=== PATIENT | female | born 1940 | race Caucasian/White ===

== ENCOUNTER 2017-05-29 09:42 | Inpatient (IN) | payer OTHER ==
[~2017-05-29] VITALS: Ht 144.8 cm; Wt 67.1 kg
--- NOTE | ~2017-05-29 | P ---
[facility] [place] [address] PROCEDURE REPORT Name: PAULINA CHIRINOS Room #: 418-P [facility] M.R.#: [id number] Admission: 05/29/17 Attend Phys: Norman Ya MD Discharge: 06/01/17 Date of : 44 Report #: [id number] THIS REPORT FOR: //name// CC: Norman Torres MD DATE OF SERVICE: 05/30/2017 INPATIENT UPPER ENDOSCOPY REPORT BRIEF HISTORY: The patient is a 76-year-old woman with history of persistent nausea and vomiting and also painful swallowing. PREOPERATIVE DIAGNOSES: Nausea, vomiting, and odynophagia. POSTOPERATIVE DIAGNOSES: 1. Mild erythematous antral gastritis. 2. Small hiatus hernia. MEDICATIONS: Deep sedation with propofol per anesthesia. SPECIMEN: Biopsies of gastritis, rule out Helicobacter pylori. ESTIMATED BLOOD LOSS: 3 mL. PROCEDURE: EGD with biopsy and Fajardo dilation. FINDINGS: Prior to propofol sedation, the procedure of upper endoscopy was discussed with the patient as well as potential risks and its complications. She indicates she understands and desires to proceed. With the patient in the left lateral decubitus position, Fuji video endoscope was inserted in the cervical esophagus under direct vision without difficulty. Examination of this organ though its entire length revealed normal esophageal mucosa down the squamocolumnar junction. Inspection of the squamocolumnar junction revealed it to be essentially intact. I did not see any ulcers or erosions. There is no evidence of Palomares esophagus. No strictures or masses were seen. In addition, no ulcers were seen anywhere in the esophagus. There is no evidence of any pill ulcerations. However, right above the squamocolumnar junction, there was some patchy erythema in the esophagus. This may be a result of her vomiting. Significant erosive changes were not seen. Scope was advanced into about a 3 cm sliding type hiatus hernia. The mucosa and hernia was unremarkable. There is no obvious obstruction. Scope was advanced in the stomach, was examined on end view as well as retroflexed views. There was erythema in the antrum of stomach, but no ulcers were seen. There is no [facility] [address] [place] [address] PROCEDURE REPORT Name: PAULINA CHIRINOS Room #: 418-P [facility] IN M.R.#: [id number] Admission: 05/29/17 Attend Phys: Norman Ya MD Discharge: 06/01/17 Date of : 44 Report #: [id number] evidence of outlet obstruction. There are no retained solids or liquids in the stomach. Upon retroflexion, no mass lesions were seen. The hiatus hernia was again seen without other abnormalities. The pylorus was normal. Duodenal bulb was normal. Postbulbar duodenal sweep was normal down to the third portion. The duodenal papilla was well seen and normal. At that point, the scope was slowly withdrawn and careful circumferential views confirmed the above findings. The patient tolerated the procedure well. Subsequently, she was dilated with passage of a 50-[place] Fajardo dilator. There was no resistance. DISPOSITION: The patient with nausea, vomiting and odynophagia. I did not find any significant lesions. At this point in time, we would treat her symptomatically with PPI. She was empirically dilated as noted. If she has problems in the future with dysphagia, dilation can be repeated on an as needed basis. If symptoms persist, consider gastric emptying study. However, it is noted she does use some narcotics, which may be a factor. She will have to come off the narcotics to complete a valid gastric emptying study. <ELECTRONICALLY SIGNED> By: Zackary Crane MD 06/02/17 1630 [id number] [id number] Zackary Crane MD /nt
[2017-05-29 09:54] VITALS: BP 140/47
[2017-05-29 10:24] LABS: HEMATOCRIT 45.1 % (37.0-47.0); HEMOGLOBIN 15.6 gm/dL (12.0-15.0); MCH 32.6 pg (26.0-34.0); MCHC 34.7 g/dL (28.0-37.0); PLATELET COUNT 231 thou/uL (150-400); RBC 4.79 mil/uL (4.20-5.00); RDW 12.9 % (10.5-14.5); WBC 6.9 thou/uL (4.0-11.0)
[2017-05-29] MEDS ORDERED: XANAX 0.25 MG0.25 MG PO (10:24)
[2017-05-29] MEDS ORDERED: CELEXA20 MG PO (10:24)
[2017-05-29] MEDS ORDERED: FOLIC ACID1 MG PO (10:25)
[2017-05-29] MEDS ORDERED: CYMBALTA60 MG PO (10:25)
[2017-05-29] MEDS ORDERED: FLEXERIL PO (10:25)
[2017-05-29] MEDS ORDERED: NORCO 5-325 TA1 EACH PO (10:26)
[2017-05-29] MEDS ORDERED: GABAPENTIN 100100 MG PO (10:26)
[2017-05-29] MEDS ORDERED: METHOTREXATE 22.5 MG PO (10:27)
[2017-05-29] MEDS ORDERED: PREDNISONE 5 MG5 M1 PO (10:28)
[2017-05-29] MEDS ORDERED: FOSAMAX 70 MG T70 MG PO (10:28)
[2017-05-29] MEDS ORDERED: TOPROL XL25 MG PO (10:28)
[2017-05-29 10:29] LABS: CALCIUM 8.9 mg/dL (8.5-10.1); CREATININE 0.8 mg/dL (0.6-1.0); POTASSIUM 3.7 mmol/L (3.5-5.1)
[2017-05-29] MEDS ORDERED: BENEFIBER152 GM PO (10:29)
[2017-05-29] MEDS ORDERED: CALCIUM 600 +1 EAC1 PO (10:29)
[2017-05-29] MEDS ORDERED: NEXIUM40 MG PO (10:30)
[2017-05-29] MEDS ORDERED: VITAMIN B-12500 MCG PO (10:30)
[2017-05-29] MEDS ORDERED: FISH OIL 1,001000 M2 PO (10:30)
[2017-05-29] MEDS ORDERED: ACTEMRA80 MG/4 ML IV (10:31)
[2017-05-29 10:35] LABS: ALBUMIN 3.9 g/dL (3.4-5.0); TOTAL BILIRUBIN 1.6 mg/dL (<0.1-1.0); TOTAL PROTEIN 6.7 g/dL (6.4-8.2)
[2017-05-29 10:50] LABS: PLATELET ESTIMATE NORMAL
[2017-05-29 13:36] VITALS: BP 150/62
[2017-05-29 15:25] VITALS: BP 121/52
[2017-05-29 19:05] VITALS: BP 147/71
[2017-05-29] MEDS ORDERED: LOPRESSOR25 PO (21:06)
[2017-05-30 00:26] VITALS: BP 148/55
[2017-05-30 05:18] VITALS: BP 156/64
[2017-05-30 06:32] LABS: HEMATOCRIT 38.6 % (37.0-47.0); MCH 32.6 pg (26.0-34.0); MCHC 34.8 g/dL (28.0-37.0); MCV 93.6 fL (80.0-100.0); RBC 4.12 mil/uL (4.20-5.00); RDW 13.1 % (10.5-14.5); WBC 6.8 thou/uL (4.0-11.0)
[2017-05-30 06:35] LABS: HEMOGLOBIN 13.4 gm/dL (12.0-15.0)
[2017-05-30 06:40] LABS: CALCIUM 8.1 mg/dL (8.5-10.1); CREATININE 0.6 mg/dL (0.6-1.0); MAGNESIUM 1.9 mg/dL (1.8-2.4); POTASSIUM 3.5 mmol/L (3.5-5.1)
[2017-05-30 06:47] LABS: DIRECT BILIRUBIN 0.4 mg/dL (<0.1-0.3); TOTAL BILIRUBIN 1.4 mg/dL (<0.1-1.0)
[2017-05-30 07:00] VITALS: BP 156/63
[2017-05-30 14:05] VITALS: BP 137/59
[2017-05-30 15:10] VITALS: BP 154/63
[2017-05-30 19:14] VITALS: BP 148/51
[2017-05-30 23:31] LABS: URINE BILIRUBIN NEGATIVE (Negative); URINE BLOOD NEGATIVE (Negative); URINE CLARITY CLEAR; URINE COLOR STRAW; URINE GLUCOSE-RANDOM* NEGATIVE (Negative); URINE KETONES 1+ (Negative); URINE LEUKOCYTES-REFLEX NEGATIVE (Negative); URINE NITRITE-REFLEX NEGATIVE (Negative); URINE PROTEIN (DIPSTICK) NEGATIVE (Negative); URINE SPECIFIC GRAVITY <= 1.005 (1.005-1.035); URINE UROBILINOGEN 0.2 E.U./dl (0.2-1.0)
[2017-05-31 03:57] VITALS: BP 114/41
[2017-05-31 05:29] LABS: HEMATOCRIT 37.5 % (37.0-47.0); HEMOGLOBIN 12.9 gm/dL (12.0-15.0); MCH 32.2 pg (26.0-34.0); MCHC 34.4 g/dL (28.0-37.0); MCV 93.8 fL (80.0-100.0); RDW 12.9 % (10.5-14.5); WBC 15.1 thou/uL (4.0-11.0)
[2017-05-31 05:52] LABS: CALCIUM 8.3 mg/dL (8.5-10.1); CREATININE 0.5 mg/dL (0.6-1.0); MAGNESIUM 1.9 mg/dL (1.8-2.4); POTASSIUM 3.2 mmol/L (3.5-5.1)
[2017-05-31 07:15] VITALS: BP 134/36
[2017-05-31 15:20] VITALS: BP 143/45
[2017-05-31 19:31] VITALS: BP 130/82
[2017-05-31 20:00] VITALS: BP 150/67
[2017-06-01 04:30] VITALS: BP 147/52
[2017-06-01 04:53] LABS: MCH 32.5 pg (26.0-34.0); MCHC 34.3 g/dL (28.0-37.0); MCV 94.9 fL (80.0-100.0); RDW 13.1 % (10.5-14.5); WBC 7.5 thou/uL (4.0-11.0)
[2017-06-01 05:10] LABS: CALCIUM 8.6 mg/dL (8.5-10.1); CREATININE 0.5 mg/dL (0.6-1.0); MAGNESIUM 1.9 mg/dL (1.8-2.4); POTASSIUM 3.6 mmol/L (3.5-5.1)
[2017-06-01 07:00] VITALS: BP 162/63
[2017-06-01 15:10] VITALS: BP 162/63
== END 2017-06-01 15:41 | disposition home or self-care (01) | DRG 392 ==
LOC: ER 09:42 → EROBS 11:48 → 4E 11:48 → ENTRNSPT 06-01 15:32 → EDTRNSPTSTS 06-01 15:33 → 4E 06-01 15:41
PROVIDERS: Emergency Medicine; Internal Medicine; Specialist
PROC: 0D758ZZ Dilation of Esophagus, Via Natural or Artificial Opening Endoscopic (ICD-10-PCS; principal; 2017-05-29)
PROC: 0DB68ZX Excision of Stomach, Via Natural or Artificial Opening Endoscopic, Diagnostic (ICD-10-PCS; 2017-05-30)
DX: A08.4 Viral intestinal infection, unspecified (principal); K29.60 Other gastritis without bleeding; K44.9 Diaphragmatic hernia without obstruction or gangrene; R13.10 Dysphagia, unspecified; Z96.652 Presence of left artificial knee joint; K76.89 Other specified diseases of liver; K21.9 Gastro-esophageal reflux disease without esophagitis; K59.00 Constipation, unspecified; M06.9 Rheumatoid arthritis, unspecified; E86.0 Dehydration; F32.9 Major depressive disorder, single episode, unspecified; K20.9 Esophagitis, unspecified; F41.9 Anxiety disorder, unspecified; K57.30 Diverticulosis of large intestine without perforation or abscess without bleeding; Z85.3 Personal history of malignant neoplasm of breast; Z90.710 Acquired absence of both cervix and uterus; Z88.1 Allergy status to other antibiotic agents; Z79.899 Other long term (current) drug therapy; Z92.21 Personal history of antineoplastic chemotherapy
CPT/HCPCS: 10183; 62110; 62900; 70005

== ENCOUNTER → 2018-09-26 | Outpatient (CLI) | payer OTHER ==
[~2018-09-26] MED LIST: ACTEMRA80 MG/4 ML IV; BENEFIBER152 GM PO; CALCIUM 600 +1 EAC1 PO; CELEXA20 MG PO; CYMBALTA60 MG PO; FISH OIL 1,001000 M2 PO; FLEXERIL PO; FOLIC ACID1 MG PO; FOSAMAX 70 MG T70 MG PO; GABAPENTIN 100100 MG PO; LOPRESSOR25 PO; METHOTREXATE 22.5 MG PO; NEXIUM40 MG PO; NORCO 5-325 TA1 EACH PO; PREDNISONE 5 MG5 M1 PO; TOPROL XL25 MG PO; VITAMIN B-12500 MCG PO; XANAX 0.25 MG0.25 MG PO
== END ==
LOC: RAD 12:03
DX: R05 Cough (principal); I70.0 Atherosclerosis of aorta

== ENCOUNTER → 2018-10-30 | Outpatient (CLI) | payer OTHER | LOC: CAT 08:57 | DX: J84.9 Interstitial pulmonary disease, unspecified (principal); K21.9 Gastro-esophageal reflux disease without esophagitis; K44.9 Diaphragmatic hernia without obstruction or gangrene; J98.4 Other disorders of lung ==

== ENCOUNTER → 2018-11-07 | Outpatient (CLI) | payer OTHER | LOC: RAD 10:52 → SPEECH 10:52 | DX: K21.9 Gastro-esophageal reflux disease without esophagitis (principal); R13.12 Dysphagia, oropharyngeal phase; R47.02 Dysphasia ==

== ENCOUNTER → 2019-09-16 | Outpatient (CLI) | payer OTHER ==
[2019-09-16 10:32] LABS: CALCIUM 8.9 mg/dL (8.5-10.1); CREATININE 0.9 mg/dL (0.6-1.0); POTASSIUM 3.8 mmol/L (3.5-5.1)
== END ==
LOC: CAT 09:01
PROVIDERS: ATTEND Family Medicine
DX: K44.9 Diaphragmatic hernia without obstruction or gangrene (principal); K40.90 Unilateral inguinal hernia, without obstruction or gangrene, not specified as recurrent; K57.30 Diverticulosis of large intestine without perforation or abscess without bleeding; K43.9 Ventral hernia without obstruction or gangrene; M62.08 Separation of muscle (nontraumatic), other site

== ENCOUNTER → 2019-12-03 | Outpatient (CLI) | payer OTHER | LOC: SJCVCIMAG 09:46 → SJCVC 09:46 | PROVIDERS: ATTEND Internal Medicine | DX: I08.3 Combined rheumatic disorders of mitral, aortic and tricuspid valves (principal); R94.31 Abnormal electrocardiogram [ECG] [EKG]; I45.10 Unspecified right bundle-branch block; I44.0 Atrioventricular block, first degree; I27.20 Pulmonary hypertension, unspecified; I10 Essential (primary) hypertension; E78.5 Hyperlipidemia, unspecified; M06.9 Rheumatoid arthritis, unspecified; J84.9 Interstitial pulmonary disease, unspecified; I82.629 Acute embolism and thrombosis of deep veins of unspecified upper extremity; Z79.899 Other long term (current) drug therapy; Z87.891 Personal history of nicotine dependence ==

== ENCOUNTER → 2020-06-29 | Outpatient (CLI) | payer OTHER ==
--- NOTE | 2020-07-08 11:28 | PFR/MVV ---
[facility] [place] [address] PULMONARY FUNCTION MVV/REPORT Name: PAULINA CHIRINOS Room #: [facility].#: [id number] Admission: 06/29/20 Attend Phys: Sanju Newell MD Discharge: Date of : 44 Report #: [id number] THIS REPORT FOR: //name// >> SPIROMETRY: (BTPS) Height: 49 in cm Weight: 168 lbs kg Exam Date: 06/29/20 PRE-RX POST-RX PRED BEST %PRED BEST %PRED %CHG FVC LITERS . 0.94 . 1.38 . 147 . 1.50 . 161 . 9 FEV1 LITERS . 0.50 . 1.09 . 217 . 1.21 . 240 . 11 FEV1/FVC % . 71 . 79 . 111 . 81 . 113 . 2 XUB93-98% L/Sec . 1.18 . 1.34 . 114 . 1.29 . 109 . -4 PEF L/SEC . 3.44 . 3.52 . 102 . 5.71 . 166 . 62 FEF50/FIF50 UNITLESS . 1.89 . 2.61 . 138 . 3.42 . 181 . 31 MVV L/Min . . . f 1/Min . . . >> LUNG VOLUMES: (BTPS) PRE-RX POST-RX PRED AVG %PRED AVG %PRED %CHG VC Liters . 0.94 . 2.89 . 309 . . . TLC Liters . 1.74 . 3.77 . 216 . . . RV Liters . 0.78 . 0.88 . 113 . . . RV/TLC % . 42 . 23 . 55 . . . FRC [address] Liters . 0.58 . 2.36 . 406 . . . FRC N2 Liters . 0.58 . . . . . ERV Liters . 0.28 . 0.69 . 250 . . . IC Liters . 0.55 . 1.41 . 256 . . . >> DIFFUSION: DLCO ml/Min/mmHg . 14.6 . 13.7 . 94 . . . DL [place] ml/Min/mmHg . 14.6 . 13.7 . 94 . . . DLCO/VA ml/Min/mmHg . 3.39 . 4.24 . 125 . . . VA Liters . . 3.24 . . . . COMMENTS: COMMENTS: >> RESISTANCE: [facility] [address] [place] [address] PULMONARY FUNCTION MVV/REPORT Name: PAULINA CHIRINOS JIM Room #: [facility].#: [id number] Admission: 06/29/20 Attend Phys: Sanju Newell MD Discharge: Date of : 44 Report #: [id number] PRE-RX PRED AVG %PRED Raw Total cmH20/L/Sec . . 11.35 . Raw Insp cmH20/L/Sec . . 10.62 . Raw Exp cmH20/L/Sec . . 22.96 . Raw cmH20/L/Sec . 11.08 . 3.66 . 33 Gaw L/Sec/cmH20 . 0.139 . 0.273 . 196 sRaw cmH20 Sec . 6.4 . 8.83 . 137 sGaw l/cmH20 Sec . 0.155 . 0.113 . 73 Vtq Liters . . 2.41 . # = OUTSIDE 95% CONFIDENCE INTERVAL CALIBRATION: PRED: 3.00 ACTUAL: EXP 3.01 INSP 3.02 [facility]-10-06 [place] [address] [id number] >> INTERPRETATION/IMPRESSION: DOC #: [id number] Tao Machado M.D. DATE OF SERVICE: 06/29/2020 PULMONARY FUNCTION STUDIES SPIROMETRY: FEV1 is 1.09 liters (217%), FVC is 1.38 liters (147%), FEV1/FVC ratio is 79%. Post bronchodilator response with intermediate reactivity. FEV1 increased to 1.21 liters (11% change). LUNG VOLUMES: Total lung capacity is 3.77 liters (217%), vital capacity is 2.89 liters (309%). RV is 0.88 liters (113%) Diffusing capacity is 94%. IMPRESSION: Pulmonary function studies are essentially normal. Increased percentage compared to predictive value is likely secondary to her height of 4 feet 11 inches and reference values are skewed for this height. Lung functions appear essentially normal. Please correlate clinically. Tao Machado M.D. JCS/ISRA [facility] [address] [place] [address] PULMONARY FUNCTION MVV/REPORT Name: PAULINA CHIRINOS [facility] [id number] Admission: 06/29/20 Attend Phys: Sanju Newell MD Discharge: Date of : 44 Report #: [id number] <ELECTRONICALLY SIGNED> By: Tao Machado MD 07/08/20 1128 Tao Machado MD /nt
== END ==
LOC: CAT 10:11
PROVIDERS: ATTEND Internal Medicine Pulmonary Disease
DX: J47.9 Bronchiectasis, uncomplicated (principal); J98.11 Atelectasis; J98.4 Other disorders of lung; M25.78 Osteophyte, vertebrae; R06.02 Shortness of breath; J84.9 Interstitial pulmonary disease, unspecified; G47.33 Obstructive sleep apnea (adult) (pediatric)

== ENCOUNTER → 2021-01-14 | Outpatient (CLI) | payer OTHER | LOC: SJCVC 13:18 | PROVIDERS: ATTEND Internal Medicine | DX: R94.31 Abnormal electrocardiogram [ECG] [EKG] (principal); I45.10 Unspecified right bundle-branch block; I44.0 Atrioventricular block, first degree; I48.0 Paroxysmal atrial fibrillation; I10 Essential (primary) hypertension; E78.5 Hyperlipidemia, unspecified; M06.9 Rheumatoid arthritis, unspecified; I82.629 Acute embolism and thrombosis of deep veins of unspecified upper extremity; G47.33 Obstructive sleep apnea (adult) (pediatric); Z82.49 Family history of ischemic heart disease and other diseases of the circulatory system; Z87.891 Personal history of nicotine dependence; Z72.89 Other problems related to lifestyle; Z79.899 Other long term (current) drug therapy; Z88.8 Allergy status to other drugs, medicaments and biological substances ==

== ENCOUNTER → 2021-01-22 | Outpatient (CLI) | payer OTHER | LOC: RAD 11:37 | PROVIDERS: ATTEND Family Medicine | DX: M47.816 Spondylosis without myelopathy or radiculopathy, lumbar region (principal); M43.16 Spondylolisthesis, lumbar region; M25.78 Osteophyte, vertebrae; M41.86 Other forms of scoliosis, lumbar region; M47.814 Spondylosis without myelopathy or radiculopathy, thoracic region; M47.812 Spondylosis without myelopathy or radiculopathy, cervical region; M43.12 Spondylolisthesis, cervical region; M46.1 Sacroiliitis, not elsewhere classified ==